=== PATIENT | female | born 1950 | race Caucasian/White ===

== ENCOUNTER 2016-09-10 10:26 | Emergency (ER) | payer BC, OTHER ==
[~2016-09-10] VITALS: Ht 162.6 cm; Wt 123.8 kg
--- NOTE | ~2016-09-10 | EKG ---
[place] [address] [facility] [place] [address] ELECTROCARDIOGRAM REPORT Name: BARBIE MALAGON DIANA Room #: [facility]P [id number] Admission: 09/10/16 Attend Phys: Discharge: 09/10/16 Date of : 48 Report #: [id number] THIS REPORT FOR: //name// [facility] ED Test Date: 2016-09-10 Test Time: 10:57:41 Pat Name: BARBIE MALAGON Department: Room: Gender: F Traffic Control Supervisor: kayla : 1950 Requested By: Bhanu Gary Order Number: [id number] MD: Jam Frazier Measurements Intervals [place] Rate: 97 P: [place]: QRS: -11 QRSD: 87 T: 179 QT: 347 QTc: 441 Interpretive Statements Atrial fibrillation Low voltage, precordial leads Nonspecific T abnormalities, lateral leads Compared to ECG 05/07/2016 07:03:22 Ventricular premature complex(es) no longer present Electronically Signed On 09-12-2016 14:49:32 CDT by Jam Frazier [email or web address] <ELECTRONICALLY SIGNED> By: Jam Frazier MD, [facility] 09/12/16 1449 [id number] [id number] Jam Frazier MD, [facility] /EPI
[~2016-09-10 10:26] MED LIST: AMARYL1 MG OR; ASPIR 8181 MG PO; BLOOD PRESSURE MED OR; CIPROFLOXACIN500 M1 PO; ELIQUIS5 MG PO; FISHOIL OR; FLAGYL500 MG PO; GLUCOPHAGE1000 MG PO; LANTUS SOL100 UNIT/1 SUBQ; LIPITOR40 MG PO; LOVASTAT10 PO; NORCO 5-325 TA1 EACH PO; PLAVIX 75 MG TA75 M1 PO; PROTONIX40 M4 PO; THERA-M CAPLET1 EACH OR; TOPROL XL25 MG PO; VITAMIN C + RO500 MG OR; VITAMIN D1000 UNI1 OR
[2016-09-10 11:04] LABS: ABSOLUTE NEUTROPHILS 6.2 thou/uL (1.4-8.2); BASOPHILS 0.6 % (0.0-2.0); EOSINOPHILS 2.9 % (0.0-3.0); HEMATOCRIT 32.8 % (37.0-47.0); HEMOGLOBIN 10.6 gm/dL (12.0-15.0); LYMPHOCYTES 16.3 % (24.0-44.0); MCH 27.6 pg (26.0-34.0); MCHC 32.5 g/dL (28.0-37.0); MCV 84.9 fL (80.0-100.0); MONOCYTES 5.3 % (1.0-8.0); PLATELET COUNT 211 thou/uL (150-400); POLYS 74.9 % (36.0-66.0); RBC 3.86 mil/uL (4.20-5.00); RDW 18.2 % (10.5-14.5); WBC 8.3 thou/uL (4.0-11.0)
[2016-09-10 11:11] LABS: ANION GAP 9 mmol/L (7-16); BUN 27 mg/dL (7-18); CALCIUM 8.7 mg/dL (8.5-10.1); CHLORIDE 106 mmol/L (98-107); CO2 27 mmol/L (21-32); CREATININE 1.2 mg/dL (0.6-1.0); GLUCOSE 308 mg/dL (74-106); POTASSIUM 4.7 mmol/L (3.5-5.1); SODIUM 142 mmol/L (136-145)
[2016-09-10 11:22] LABS: MANUAL DIFF NO
[2016-09-10 11:23] LABS: NT-PRO BRAIN NAT PEPTIDE 1335 pg/mL (<300); TROPONIN-I < 0.04 ng/mL (<0.04-0.07)
[2016-09-10] MEDS ORDERED: DILT-XR240 M1 PO (12:44)
[2016-09-10] MEDS ORDERED: LASIX 20 MG TAB20 MG PO (12:44)
== END 2016-09-10 13:18 | disposition home or self-care (01) ==
LOC: ER 10:26
PROVIDERS: Emergency Medicine
DX: R06.09 Other forms of dyspnea (principal); E11.9 Type 2 diabetes mellitus without complications; E78.00 Pure hypercholesterolemia, unspecified; I10 Essential (primary) hypertension; I48.91 Unspecified atrial fibrillation

== ENCOUNTER → 2017-03-04 | Outpatient (CLI) | payer BC ==
[~2017-03-04] MED LIST changes: +DILT-XR240 M1 PO; +LASIX 20 MG TAB20 MG PO
[2017-03-04 14:23] LABS: ABSOLUTE NEUTROPHILS 6.2 thou/uL (1.4-8.2); BASOPHILS 0.9 % (0.0-2.0); EOSINOPHILS 3.9 % (0.0-3.0); HEMATOCRIT 36.9 % (37.0-47.0); HEMOGLOBIN 12.1 gm/dL (12.0-15.0); LYMPHOCYTES 17.8 % (24.0-44.0); MCH 28.5 pg (26.0-34.0); MCHC 32.7 g/dL (28.0-37.0); MCV 87.1 fL (80.0-100.0); MONOCYTES 3.8 % (1.0-8.0); PLATELET COUNT 262 thou/uL (150-400); POLYS 73.6 % (36.0-66.0); RBC 4.24 mil/uL (4.20-5.00); RDW 17.7 % (10.5-14.5); WBC 8.5 thou/uL (4.0-11.0)
[2017-03-04 14:28] LABS: MANUAL DIFF NO
[2017-03-04 14:38] LABS: ALBUMIN 3.4 g/dL (3.4-5.0); CALCIUM 9.7 mg/dL (8.5-10.1); CREATININE 1.3 mg/dL (0.6-1.0); POTASSIUM 4.5 mmol/L (3.5-5.1); TOTAL BILIRUBIN 0.3 mg/dL (<0.1-1.0); TOTAL PROTEIN 8.2 g/dL (6.4-8.2)
== END ==
LOC: MRI 13:42 → LABMALL 13:42
PROVIDERS: Internal Medicine Cardiovascular Disease
DX: I25.10 Atherosclerotic heart disease of native coronary artery without angina pectoris (principal); I48.91 Unspecified atrial fibrillation; I67.7 Cerebral arteritis, not elsewhere classified; R40.20 Unspecified coma

== ENCOUNTER → 2017-05-30 | Outpatient (CLI) | payer BC | LOC: HYPER 07:15 | DX: T81.89XD Other complications of procedures, not elsewhere classified, subsequent encounter (principal); E11.622 Type 2 diabetes mellitus with other skin ulcer; L97.211 Non-pressure chronic ulcer of right calf limited to breakdown of skin; I87.2 Venous insufficiency (chronic) (peripheral); I10 Essential (primary) hypertension; I25.10 Atherosclerotic heart disease of native coronary artery without angina pectoris; I48.91 Unspecified atrial fibrillation; I65.23 Occlusion and stenosis of bilateral carotid arteries; E78.5 Hyperlipidemia, unspecified; Z86.718 Personal history of other venous thrombosis and embolism; Y83.8 Other surgical procedures as the cause of abnormal reaction of the patient, or of later complication, without mention of misadventure at the time of the procedure ==

== ENCOUNTER → 2018-02-21 | Outpatient (CLI) | payer BC | LOC: HYPER 07:10 | DX: E11.622 Type 2 diabetes mellitus with other skin ulcer (principal); L97.821 Non-pressure chronic ulcer of other part of left lower leg limited to breakdown of skin; S80.821A Blister (nonthermal), right lower leg, initial encounter; I87.2 Venous insufficiency (chronic) (peripheral); I65.23 Occlusion and stenosis of bilateral carotid arteries; I25.10 Atherosclerotic heart disease of native coronary artery without angina pectoris; I48.91 Unspecified atrial fibrillation; I10 Essential (primary) hypertension; R60.0 Localized edema; E66.9 Obesity, unspecified; E78.5 Hyperlipidemia, unspecified; Z86.73 Personal history of transient ischemic attack (TIA), and cerebral infarction without residual deficits; Z86.718 Personal history of other venous thrombosis and embolism; Z68.42 Body mass index [BMI] 45.0-49.9, adult; X58.XXXA Exposure to other specified factors, initial encounter; Y93.89 Activity, other specified; Y92.89 Other specified places as the place of occurrence of the external cause; Y99.8 Other external cause status ==

== ENCOUNTER → 2018-03-02 | Outpatient (CLI) | payer BC | LOC: HYPER 07:03 | DX: E11.622 Type 2 diabetes mellitus with other skin ulcer (principal); L97.821 Non-pressure chronic ulcer of other part of left lower leg limited to breakdown of skin; S80.821D Blister (nonthermal), right lower leg, subsequent encounter; I87.2 Venous insufficiency (chronic) (peripheral); I65.23 Occlusion and stenosis of bilateral carotid arteries; I25.10 Atherosclerotic heart disease of native coronary artery without angina pectoris; I48.91 Unspecified atrial fibrillation; I10 Essential (primary) hypertension; E66.9 Obesity, unspecified; E78.5 Hyperlipidemia, unspecified; Z86.718 Personal history of other venous thrombosis and embolism; Z68.42 Body mass index [BMI] 45.0-49.9, adult; X58.XXXD Exposure to other specified factors, subsequent encounter ==

== ENCOUNTER → 2018-03-16 | Outpatient (CLI) | payer BC | LOC: HYPER 07:02 | DX: E11.622 Type 2 diabetes mellitus with other skin ulcer (principal); L97.821 Non-pressure chronic ulcer of other part of left lower leg limited to breakdown of skin; I87.2 Venous insufficiency (chronic) (peripheral); E66.9 Obesity, unspecified; E78.5 Hyperlipidemia, unspecified; I65.23 Occlusion and stenosis of bilateral carotid arteries; I25.10 Atherosclerotic heart disease of native coronary artery without angina pectoris; I48.91 Unspecified atrial fibrillation; I10 Essential (primary) hypertension; Z86.718 Personal history of other venous thrombosis and embolism; Z68.42 Body mass index [BMI] 45.0-49.9, adult ==

== ENCOUNTER → 2018-06-12 | Outpatient (CLI) | payer BC | LOC: HYPER 06:55 | DX: E11.622 Type 2 diabetes mellitus with other skin ulcer (principal); L97.821 Non-pressure chronic ulcer of other part of left lower leg limited to breakdown of skin; I87.2 Venous insufficiency (chronic) (peripheral); I65.23 Occlusion and stenosis of bilateral carotid arteries; I25.10 Atherosclerotic heart disease of native coronary artery without angina pectoris; I48.91 Unspecified atrial fibrillation; I10 Essential (primary) hypertension; E66.9 Obesity, unspecified; E78.5 Hyperlipidemia, unspecified; Z86.718 Personal history of other venous thrombosis and embolism; Z68.42 Body mass index [BMI] 45.0-49.9, adult ==

== ENCOUNTER → 2018-06-19 | Outpatient (CLI) | payer BC | LOC: HYPER 06:38 | DX: E11.622 Type 2 diabetes mellitus with other skin ulcer (principal); L97.821 Non-pressure chronic ulcer of other part of left lower leg limited to breakdown of skin; E66.9 Obesity, unspecified; E78.5 Hyperlipidemia, unspecified; I87.2 Venous insufficiency (chronic) (peripheral); I65.23 Occlusion and stenosis of bilateral carotid arteries; I25.10 Atherosclerotic heart disease of native coronary artery without angina pectoris; I48.91 Unspecified atrial fibrillation; I10 Essential (primary) hypertension; Z86.718 Personal history of other venous thrombosis and embolism; Z68.42 Body mass index [BMI] 45.0-49.9, adult ==

== ENCOUNTER 2018-07-08 10:27 | Emergency (ER) | payer BC ==
[~2018-07-08] VITALS: Ht 162.6 cm; Wt 117.9 kg
[2018-07-08] MEDS ORDERED: TORSEMIDE20 MG PO (10:44)
[2018-07-08] MEDS ORDERED: POTASSIUM20 PO (10:45)
[2018-07-08] MEDS ORDERED: BENICAR40 MG PO (10:47)
[2018-07-08] MEDS ORDERED: UNICOMPLEX M TA1 TA1 PO (10:49)
[2018-07-08] MEDS ORDERED: NORCO 5-325 TA1 EACH PO (12:20)
[2018-07-08 12:55] VITALS: BP 144/63
== END 2018-07-08 12:57 | disposition home or self-care (01) ==
LOC: ER 10:27
DX: M25.462 Effusion, left knee (principal); E11.9 Type 2 diabetes mellitus without complications; E78.00 Pure hypercholesterolemia, unspecified; I10 Essential (primary) hypertension; I48.91 Unspecified atrial fibrillation; W19.XXXA Unspecified fall, initial encounter; Y93.89 Activity, other specified; Y92.89 Other specified places as the place of occurrence of the external cause; Y99.8 Other external cause status

== ENCOUNTER → 2018-07-10 | Outpatient (CLI) | payer BC ==
[~2018-07-10] MED LIST changes: +BENICAR40 MG PO; +POTASSIUM20 PO; +TORSEMIDE20 MG PO; +UNICOMPLEX M TA1 TA1 PO
== END ==
LOC: HYPER 07:29
DX: E11.622 Type 2 diabetes mellitus with other skin ulcer (principal); L97.822 Non-pressure chronic ulcer of other part of left lower leg with fat layer exposed; E66.9 Obesity, unspecified; E78.5 Hyperlipidemia, unspecified; I87.2 Venous insufficiency (chronic) (peripheral); I65.23 Occlusion and stenosis of bilateral carotid arteries; I25.10 Atherosclerotic heart disease of native coronary artery without angina pectoris; I48.91 Unspecified atrial fibrillation; I10 Essential (primary) hypertension; Z68.42 Body mass index [BMI] 45.0-49.9, adult; Z86.718 Personal history of other venous thrombosis and embolism

== ENCOUNTER 2018-07-18 13:35 | Emergency (ER) | payer BC ==
[~2018-07-18] VITALS: Ht 162.6 cm; Wt 116.1 kg
[2018-07-18 16:12] VITALS: BP 123/55
== END 2018-07-18 16:12 | disposition home or self-care (01) ==
LOC: ER 13:35
DX: M25.562 Pain in left knee (principal); M25.572 Pain in left ankle and joints of left foot; M79.661 Pain in right lower leg; E11.9 Type 2 diabetes mellitus without complications; E78.00 Pure hypercholesterolemia, unspecified; I10 Essential (primary) hypertension; I48.91 Unspecified atrial fibrillation; Z79.4 Long term (current) use of insulin; W18.39XA Other fall on same level, initial encounter; Y93.89 Activity, other specified; Y92.89 Other specified places as the place of occurrence of the external cause; Y99.0 Civilian activity done for income or pay

== ENCOUNTER → 2018-07-31 | Outpatient (CLI) | payer BC | LOC: HYPER 06:50 | DX: E11.622 Type 2 diabetes mellitus with other skin ulcer (principal); L97.822 Non-pressure chronic ulcer of other part of left lower leg with fat layer exposed; E66.9 Obesity, unspecified; E78.5 Hyperlipidemia, unspecified; I87.2 Venous insufficiency (chronic) (peripheral); I65.23 Occlusion and stenosis of bilateral carotid arteries; I25.10 Atherosclerotic heart disease of native coronary artery without angina pectoris; I48.91 Unspecified atrial fibrillation; I10 Essential (primary) hypertension; Z86.718 Personal history of other venous thrombosis and embolism; Z68.42 Body mass index [BMI] 45.0-49.9, adult ==

== ENCOUNTER → 2018-08-22 | Outpatient (CLI) | payer BC | LOC: HYPER 08:35 | DX: E11.622 Type 2 diabetes mellitus with other skin ulcer (principal); L97.822 Non-pressure chronic ulcer of other part of left lower leg with fat layer exposed; I87.2 Venous insufficiency (chronic) (peripheral); I10 Essential (primary) hypertension; I65.23 Occlusion and stenosis of bilateral carotid arteries; I25.10 Atherosclerotic heart disease of native coronary artery without angina pectoris; I48.91 Unspecified atrial fibrillation; E66.9 Obesity, unspecified; E78.5 Hyperlipidemia, unspecified; Z86.718 Personal history of other venous thrombosis and embolism; Z68.42 Body mass index [BMI] 45.0-49.9, adult ==

== ENCOUNTER 2018-11-03 11:03 | Inpatient (IN) | payer BC, OTHER ==
[~2018-11-03] VITALS: Ht 162.6 cm; Wt 118.0 kg
--- NOTE | ~2018-11-03 | O ---
[facility] [place] [place] [address] OPERATIVE REPORT Name: BARBIE MALAGON Room #: 427-P ADM IN M.R.#: [id number] Admission: 11/03/18 ������������������ Attend Phys: Mark Guardado Discharge: ������������������ Date of : 48 Report #: [id number] THIS REPORT FOR: //name// CC: Mark Coates DATE OF SERVICE: 11/04/2018 PREOPERATIVE DIAGNOSIS: Incarcerated ventral hernia. POSTOPERATIVE DIAGNOSIS: Incarcerated ventral hernia. OPERATIVE PROCEDURE DONE: Laparoscopic repair of incarcerated ventral hernia with mesh. SURGEON: Dr. Jose Womack. INDICATIONS: The patient is a 68-year-old female who is obese, who presented with features of a ventral hernia and features of obstruction. The hernia appeared to be incarcerated and the obstruction was within the hernia. The patient was advised laparoscopic repair of same. The patient was tender over the abdomen in the region of the ventral hernia. The patient was advised for the emergency procedure emergency repair. DESCRIPTION OF PROCEDURE: After explaining the patient in detail and informed consent was obtained, the patient was identified in the preoperative holding area, the patient was transferred to the operating room and was placed in supine position. Sequential compression devices were placed for DVT prophylaxis. The preoperative antibiotics were given. After induction of anesthesia, the abdomen was prepped and draped in a sterile fashion through a left upper quadrant 1 cm incision and using the Optiview technique, the peritoneal cavity was entered and a pneumoperitoneum was created. Thereafter, under direct vision, another 8 mm trocar was placed in the left flank and another 5 mm trocar was placed in the left lower quadrant region. On initial inspection, the patient was noted to have an incarcerated ventral hernia at the previous repair site near the umbilical region. This was gently reduced using blunt dissection. The bowel was also appeared to be congested, but it was still very viable. Once this was completed, I did not do any dissection of the sac as the umbilicus was very thinned out and I suspected possible non-viability of the umbilicus. She fired it. Continued dissection of the sac from this region. Therefore, I used 2 interrupted Ethibond suture to approximate the hernial defect slightly without much tension. After this, I chose a 15 x 10 cm Ventralight mesh with this is inserted into the abdominal cavity. This was the Echo mesh. Therefore, I inflated the balloon. The mesh was then anchored down to the anterior abdominal wall. The mesh was then tacked circumferentially using secure strap at 1 cm intervals. Once this was done, I then placed four interrupted 2-0 [place] [address] [address] OPERATIVE REPORT Name: BARBIE MALAGON DIANA Room #: 427-P [facility] IN M.R.#: [id number] Admission: 11/03/18 ������������������ Attend Phys: Mark Guardado Discharge: ������������������ Date of : 48 Report #: [id number] sutures in the four corners to anchor the mesh well. Once this is completed, absolute hemostasis was ensured. The abdomen was then desufflated. Incisions were closed with 4-0 Monocryl. Dermabond was applied. The patient was stable at the end of the procedure, the patient was awoken from anesthesia and was transferred to the recovery room in stable condition. Estimated blood loss was 5 mL. CONDITION: The patient is stable. FLUIDS GIVEN: Per anesthesiologist. SPECIMEN SENT: None. COMPLICATIONS: None. ANESTHESIA: General anesthesia. ��������������������������������������������� ���������������������������������������� By: ��������������������������������������������� 1946 13 Jose Womack MD /nt
[~2018-11-03 11:03] MED LIST changes: -AMARYL1 MG OR; +AMARYL4 MG PO; -ASPIR 8181 MG PO; +ASPIRIN81 M2 PO; -GLUCOPHAGE1000 MG PO; +GLUCOPHAGE500 MG PO
[2018-11-03 11:04] VITALS: BP 195/80
[2018-11-03 11:29] LABS: HEMATOCRIT 38.9 % (37.0-47.0); HEMOGLOBIN 12.6 gm/dL (12.0-15.0); MCH 28.2 pg (26.0-34.0); MCHC 32.4 g/dL (28.0-37.0); MCV 87.1 fL (80.0-100.0); RBC 4.46 mil/uL (4.20-5.00); RDW 16.3 % (10.5-14.5); WBC 12.7 thou/uL (4.0-11.0)
[2018-11-03 11:37] LABS: ANION GAP 11 mmol/L (7-16); BUN 39 mg/dL (7-18); CALCIUM 10.8 mg/dL (8.5-10.1); CHLORIDE 102 mmol/L (98-107); CO2 26 mmol/L (21-32); CREATININE 1.3 mg/dL (0.6-1.0); GLUCOSE 172 mg/dL (74-106); SODIUM 139 mmol/L (136-145)
[2018-11-03 11:47] LABS: ALBUMIN 3.9 g/dL (3.4-5.0); LIPASE 101 U/L (73-393); SGOT 23 U/L (15-37); SGPT 31 U/L (30-65); TOTAL BILIRUBIN 0.5 mg/dL (<0.1-1.0); TOTAL PROTEIN 8.7 g/dL (6.4-8.2); TROPONIN-I <0.06 ng/mL (<0.06)
[2018-11-03 15:00] VITALS: BP 194/78
--- NOTE | 2018-11-03 15:02 | EKG ---
[address] [place] [address] ELECTROCARDIOGRAM REPORT Name: BARBIE MALAGON DIANA Room #: 170-10 ADM IN M.R.#: [id number] ������������������ Admission: 11/03/18 ������������������ Attend Phys: Mark Guardado Discharge: ������������������ Date of : 48 Report #: [id number] ����������������������������������������������������������������� [id number] THIS REPORT FOR: //name// [facility] ED Test Date: 2018-11-03 Test Time: 11:38:52 Pat Name: BARBIE MALAGON Department: Room: 170 Gender: F Student Assistant: ONEIL : 1950 Requested By: Shruti Valenzuela Order Number: [id number] MD: Luis Lewis Measurements Intervals [place] Rate: 108 P: [place]: QRS: -15 QRSD: 91 T: 116 QT: 335 QTc: 449 Interpretive Statements Atrial fibrillation Ventricular premature complex Borderline left axis deviation Low voltage, precordial leads Nonspecific repol abnormality, lateral leads Compared to ECG 09/10/2016 10:57:41 Ventricular premature complex(es) now present T-wave abnormality no longer present Electronically Signed On 11-03-2018 15:01:57 CDT by Luis Lewis [email or web address] ��������������������������������������������� <ELECTRONICALLY SIGNED> ���������������������������������������� By: Luis Lewis MD ��������������������������������������������� 11/03/18 1501 1138 1138 Luis Lewis MD /EPI
[2018-11-03] MEDS ORDERED: DILTIAZEM 24HR180 M2 PO (15:07)
[2018-11-03 15:13] VITALS: BP 194/78
[2018-11-03 16:29] VITALS: BP 152/102
--- NOTE | 2018-11-03 18:03 | NUR ---
PT ARRIVED TO ROOM 427 FROM ED IN STABLE CONDITION AT 16:15. ELEVATED BP NOTED, BP MEDS TO GIVE. IV INFILTRATED UPON ARRIVAL, IV TEAM NOTIFIED. NGT IN PLACE, LIS. RODRÍGUEZ BROWN OUTPUT NOTED. ROOM AIR. SACRAL REDNESS NOTED. NPO. HIGH FALL RISK NOTED, BED ALARM ON. WILL CONTINUE TO MONITOR.
[2018-11-03 22:07] VITALS: BP 146/71
[2018-11-04] VITALS (7 sets, daily range): BP systolic 83–148; BP diastolic 58–87
--- NOTE | 2018-11-04 05:18 | NUR ---
PATIENT ALERT AND ORIENTED X4. NG TO LOW INTERMITTIN SUCTION. VOMITED SMALL AMOUNT BROWN LIQUID. ACCU CHECK WAS 205, RECIEVED 4 UNITS LISPRO INSULIN. REMAIN NPO FOR SURGERY IN THE AFTERNOON. HERNIA IN ABD THAT WILL NOT REDUCE. C/O PAIN X1, MED GIVEN. SLEPT OFF AND ON DURING NIGHT.
--- NOTE | 2018-11-04 11:16 | NUR ---
ASSESMENT COMPLETED. VSS. A/O. PAIN MANAGED BY MEDS ORDERED. NO SOA. VOMITTED X1 THIS AM. NG TO BRITTNEE. RETAPED. PT TAKE TO SURGERY AT THIS TIME.
--- NOTE | 2018-11-04 15:58 | NUR ---
ORDER CLARIFICATION FOR PT METOPROLOL ORDER. PAGED DR. GARCIA, WAITING FOR CALL BACK.
--- NOTE | 2018-11-04 16:27 | NUR ---
PT BACK FROM SURGERY STATING FEELING BETTER. LAP SITES X9 CDI. PT TO START ON CLEARS. NO CONCERNS VOICED AT THIS TIME. WILL CONT. TO MONITOR.
--- NOTE | 2018-11-04 18:13 | NUR ---
PT REPORTS UNABLE TO VOID SINCE THIS AM. WENT TO SURGERY AT 11AM. RECEIVED PT CARE APPROX [phone]. ATTEMPTED TO USE BEDPAN- NO RESULTS. BLADDER SCANNED 75 ML. NO DISCOMFORT AT THIS TIME.
[2018-11-05 04:00] VITALS: BP 114/55
[2018-11-05 06:31] LABS: ALBUMIN 2.6 g/dL (3.4-5.0); CREATININE 1.1 mg/dL (0.6-1.0); MAGNESIUM 1.8 mg/dL (1.8-2.4); PHOSPHORUS 3.7 mg/dL (2.5-4.9); POTASSIUM 4.4 mmol/L (3.5-5.1)
[2018-11-05 06:32] LABS: CALCIUM 8.2 mg/dL (8.5-10.1)
--- NOTE | 2018-11-05 07:29 | NUR ---
PATIENT ALERT AND ORIENTED X4. REFUSING TO GET OOB TO THE BSC. INCONTINENT OF B/B X1 DURING THE NIGHT. MEDICATED FOR PAIN. PATIENT SLEPT FOR APPROX SIX HOURS DURING THE NIGHT. IVF INFUSING W/O COMPLICATION. BS MONITORED PER ORDER. RESTING QUIETLY. WILL MONITOR.
--- NOTE | 2018-11-05 18:01 | NUR ---
ASSUMED CARE OF PT AT 0700. ASSESSMENT CHARTED. A&O,X4. C/O BACK AND ABD PAIN, PAIN MEDS GIVEN ORDERED. FLUIDS D/C. LAP SITES WITH DERMABOND INTACT. PT UP TO BSC TO VOID. WEANED TO ROOM AIR, SATS ABOVE 92%. ADVANCED DIET PER DR. GARDNER, PT TOLERATING. PROGRESSING TOWARDS GOALS. WILL CONTINUE TO MONITOR UNTIL EOS.
[2018-11-05 19:46] VITALS: BP 129/61
[2018-11-06 04:57] VITALS: BP 122/72
--- NOTE | 2018-11-06 06:42 | NUR ---
NOC: ASSUMED CARE OF PT @1900 ALERT AND ORIENTEDX4 DENIES PAIN. DRESSING AROUND INCISION INTACT. SIGNIFICANT OTHER AT BEDSIDE FOR THE NIGHT. URINAL BY BEDSIDE. FALL PREC IN PLACE AND BED IN LOW POSITION WILL CONINUE TO MONITOR
[2018-11-06 07:41] VITALS: BP 112/60
--- NOTE | 2018-11-06 09:24 | NUR ---
ASSESMENT COMPLETED. VSS. A/O. C/O PAIN- MEDS GIVEN ORDERED- SEE MAR. NO NOTED SOA. NO NV. PT EATING BREAKFAST AT THIS TIME. TOLERATING WELL. LAP SITES CDI. WILL CONT. TO MONITOR.
[2018-11-06] MEDS ORDERED: TRAMADOL 50 MG50 MG PO (09:55)
[2018-11-06] MEDS ORDERED: MIRALAX17 G1 PO (09:55)
--- NOTE | 2018-11-06 10:04 | NUR ---
INITIAL ASSESSMENT: Pt evaluated for d/c planning needs. Reviewed chart and spoke with nurse and pt. Pt is alert and oriented. Pt lives in house with and 9 year old. Pt was independent with ADL's and used cane for ambulation. Pt works full-time at [employer] in the office. Pt has not had home health in the past. Pt plans on returning home on d/c from hospital. No d/c needs indicated.
[2018-11-06 11:18] VITALS: BP 112/60
--- NOTE | 2018-11-06 12:27 | NUR ---
DC INSTRUCTIONS GIVEN TO PT. PT VERBALIZED UNDERSTANDING. IV DCD. SCRIPTS GIVEN. PT TO DC HOME WITH SELF CARE IN STABLE CONDITION. WAITING FOR TRANSPORT.
== END 2018-11-06 12:30 | disposition home or self-care (01) | DRG 355 ==
LOC: ER 11:03 → EROBS 14:40 → 4E 14:40 → ENTRNSPT 11-06 12:27 → 4E 11-06 12:30 → EDTRNSPTSTS 11-06 12:34
PROVIDERS: Student in an Organized Health Care Education/Training Program; Surgery; ADMIT Hospitalist
PROC: 0WUF4JZ Supplement Abdominal Wall with Synthetic Substitute, Percutaneous Endoscopic Approach (ICD-10-PCS; principal; 2018-11-04)
DX: K43.6 Other and unspecified ventral hernia with obstruction, without gangrene (principal); I10 Essential (primary) hypertension; E78.5 Hyperlipidemia, unspecified; E11.9 Type 2 diabetes mellitus without complications; K42.0 Umbilical hernia with obstruction, without gangrene; F17.210 Nicotine dependence, cigarettes, uncomplicated; I48.91 Unspecified atrial fibrillation; E78.00 Pure hypercholesterolemia, unspecified; Z79.01 Long term (current) use of anticoagulants; Z95.818 Presence of other cardiac implants and grafts; Z79.82 Long term (current) use of aspirin; Z79.84 Long term (current) use of oral hypoglycemic drugs; Z90.49 Acquired absence of other specified parts of digestive tract; Z79.899 Other long term (current) drug therapy
CPT/HCPCS: 10084; 50010; 50101; 50249; 50386; 50555; 50558; 50979; 50984; 52265; 52266; 53310; 54022; 54118; 56462; 56525; 56526; 56530; 57092; 62110; 62900; 70005

== ENCOUNTER 2018-11-06 17:25 | Inpatient (IN) | payer BC, OTHER ==
[~2018-11-06] VITALS: Ht 162.6 cm; Wt 128.9 kg
[~2018-11-06 17:25] MED LIST changes: +DILTIAZEM 24HR180 M2 PO; +MIRALAX17 G1 PO; +TRAMADOL 50 MG50 MG PO
[2018-11-06 18:42] LABS: ABSOLUTE NEUTROPHILS 10.9 thou/uL (1.4-8.2); BASOPHILS 0.3 % (0.0-2.0); EOSINOPHILS 1.1 % (0.0-3.0); HEMOGLOBIN 10.8 gm/dL (12.0-15.0); LYMPHOCYTES 9.2 % (24.0-44.0); MCHC 31.7 g/dL (28.0-37.0); MCV 88.3 fL (80.0-100.0); MONOCYTES 5.7 % (1.0-8.0); PLATELET COUNT 239 thou/uL (150-400); POLYS 83.7 % (36.0-66.0); RBC 3.85 mil/uL (4.20-5.00); RDW 16.9 % (10.5-14.5); WBC 13.1 thou/uL (4.0-11.0)
[2018-11-06 18:52] LABS: CALCIUM 9.2 mg/dL (8.5-10.1); CREATININE 1.3 mg/dL (0.6-1.0); POTASSIUM 3.8 mmol/L (3.5-5.1)
[2018-11-06 19:00] LABS: TROPONIN-I 0.07 ng/mL (<0.06)
--- NOTE | 2018-11-07 07:37 | EKG ---
[place] [address] [facility] [place] [address] ELECTROCARDIOGRAM REPORT Name: BARBIE MALAGON DIANA Room #: 170-17 ADM IN M.R.#: [id number] ������������������ Admission: 11/06/18 ������������������ Attend Phys: Mark Guardado Discharge: ������������������ Date of : 48 Report #: [id number] ����������������������������������������������������������������� [id number] THIS REPORT FOR: //name// [facility] ED Test Date: 2018-11-06 Test Time: 17:41:12 Pat Name: BARBIE MALAGON Department: Room: 170 Gender: F Assistant Child Care Teacher: HEMANT : 1950 Requested By: Bhanu Gary Order Number: [id number] MD: Jam Frazier Measurements Intervals [place] Rate: 110 P: [place]: QRS: -14 QRSD: 86 T: 147 QT: 276 QTc: 374 Interpretive Statements Atrial fibrillation Frequent premature ventricular aberrantly conducted supraventricular complexes Nonspecific ST and T wave abnormality Compared to ECG 11/03/2018 11:38:52 No significant change was found Electronically Signed On 11-07-2018 7:37:37 CDT by Jam Frazier [email or web address] ��������������������������������������������� <ELECTRONICALLY SIGNED> ���������������������������������������� By: Jam Frazier MD, [facility] ��������������������������������������������� 11/07/18 0737 [id number] Jam Frazier MD, [facility] /EPI
[2018-11-07 14:31] VITALS: BP 106/61
[2018-11-07 18:42] VITALS: BP 106/58
[2018-11-07 20:41] VITALS: BP 110/57
[2018-11-08] VITALS: BP 121/61
[2018-11-08 03:54] VITALS: BP 141/69
--- NOTE | 2018-11-08 06:35 | NUR ---
ASSUMED PT CARE AT 1900. VSS. PT A&0X4. PT WAS A NEW ER ADMIT LAST NIGHT. PT REPORTS BEING NON WEIGHT BEARING ON HER LEGS & WEAKNESS. SHE IS ALSO HIGH FALL RISK SHE RECENTY FELL AT HOME. PT HAS A LEFT KNEE PAIN, GETS HYDROCODONE FOR IT. SHE ALSO RECENTLY HAD ABD HERNIA REPAIR SURGERY SO PT HAD NOT HAD A BM SINCE 11/02/18; NEEDS MIRALAX. SKIN IS INTACT, ABD DRESSING CDI. 5 LAP SITES NOTED ON ABD WITH SURGUCAL GLUE. PT IS ALSO INCONTINENT OF BLADDER, FREQUENT BEDCHECKS NEEDED. PT IS AFIB ON THE MONITOR WAS 110s WHEN SHE INITIALLY GOT TO THE FLOOR LAST NIGHT BUT DROPPED TO THE 90s THE NIGHT WENT ON. OTHERWISE PT IS STABLE, WILL CONTINUE TO MONITOR PER POC.
[2018-11-08 07:21] VITALS: BP 141/74
--- NOTE | 2018-11-08 12:38 | NUR ---
Case opened to follow for dc planning. Pt was dc'd to home yesterday after a hernia surgery;however she hurt her lt knee getting into the house and returned to the ER. Pt is a&ox4 and lives indep with her spouse. 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 She has four steps to enter her home and has been able to manage those with a cane. She and her spouse are raising their 9yr old grandson with Autism. Her spouse is retired. She is awaiting an ortho consult and PT eval but is aware that she will need SNF at ia. She is interested in [facility] due to location and they are in network with her ins plan. DC digital media planner to initiate referral. Support provided.
[2018-11-08 12:46] VITALS: BP 141/67
--- NOTE | 2018-11-08 13:47 | NUR ---
FAXED REFERRAL TO [facility] SPOKE WITH TIFFANIE IN ADM SHE RECEIVED REFERRAL. PT HAS NOT BEEN SEEN BY PT/OT YET DCP WILL FAX NOTES ONCE AVAILABLE.DCP TO FOLLOW.
[2018-11-08 16:00] VITALS: BP 148/61
--- NOTE | 2018-11-08 17:55 | NUR ---
ALERT AND ORIENTED AND VITALS STABLE. HAS BEEN MEDICATED FOR PAIN WITH PRN MEDS ONCE TODAY. MEDICATED FOR NAUSEA AND PRN LAXATIVE ADMINISTERED. INCONTINENT OF BLADDER DESPITE MULTIPLE ATTEMPTS TO PUT ON BEDPAN. DRESSING ON ABD INTACT. LLE IMMOBILIZER APPLIED. WILL CONTINUE TO MONITOR CLOSELY, BEING EVALUATED FOR SNF.
[2018-11-08 19:35] VITALS: BP 168/59
[2018-11-09 04:21] VITALS: BP 140/63
--- NOTE | 2018-11-09 05:19 | NUR ---
ASSESSMENT DOCUMENTED.PT BEEN RESTING IN NO ACUTE DISTRESS.A/OX4.VSS.PT CONTINUE DTO C/O PAIN TO LEFT LEG THAT IS CONTROLLED WITH PAIN MEDS.LAP SITES INCISIONS INTACT.BRACE TO LEFT KNEE IN PLACE.NO C/O NAUSEA.POC IS TO CONT WITH TX ORDERED WITH POSSIBLE DISCHARGE TO REHAB.
[2018-11-09 07:45] VITALS: BP 141/75
[2018-11-09 08:53] VITALS: BP 141/75
--- NOTE | 2018-11-09 14:26 | NUR ---
Pt dcing to SNF today at [facility]. They have rec'd insurance authorization. Pt updated at bedside and agreeable. She will let her spouse and dtr know. Pt glad she will not have to have surgery. She is hoping to rehab quickly and return home. A family member has been working on a ramp for her home's front entrance as she has four steps. Chart copy in place to send with the pt. Nursing to call report. DC cyber ops planner has faxed orders and will confirm transport time with all parties.
--- NOTE | 2018-11-09 14:40 | NUR ---
PT DISCHARGING TODAY TO [facility] FAXED DC ORDERS/SUMMARY TO FACILITY SPOKE WITH TIFFANIE IN ADM SHE RECEIVED ORDERS AND ARRANGED TRANSPORT VIA WC VAN FOR [phone]. PT WILL NOTIFY FAMILY OF DC AND TIME OF TRANSPORT. UNIT NOTIFIED AND CHART COPY PER US. RN TO CALL REPORT TO [phone].
--- NOTE | 2018-11-09 15:30 | NUR ---
PT CARE ASSUMED APPROX 0700. PT ALERT AND ORIENTED X4. DENIES SOA. C/O PAIN TO LEFT KNEE BUT YELLS "OUCH" WHEN ANY BODY PART IS TOUCHED. PT RECEIVED PAIN MEDS THIS AM BUT HAS NOT WANTED ANY SINCE THEN. VSS. BS CONTROLLED WITH SSI. PT UP TO BSC WITH P/T. LEFT KNEE IMMOBILIZER IN PLACE. PT TO DISCHARGE TO SNF FACILITY AT APPROX 1600. PT REPORTS THAT ALL BELONGINGS ARE IN HER POSSESSION. DENIES QUESTIONS OR CONCERNS REGARDING TRANSFER OR POC. PT HAD MULTPILE BOWEL MOVEMENTS AND REPORTS RELIEF. REPORT CALLED TO SLY AT RECEIVING FACILITY. SHE ALSO DENIES QUESTIONS OR CONCERNS REGARDING PT OR POST HOSPITAL CARE. IV OUT, TELE OFF. WILL MONITOR PT UNTIL TRANSPORTATION ARRIVES.
--- NOTE | 2018-11-09 16:29 | NUR ---
PT LEAVING AT THIS TIME WITH WHEELCHAIR VAN. NO ISSUES.
--- NOTE | 2018-11-09 16:33 | HC ---
[facility] [place] [address] [place] [address] CONSULTATION Name: BARBIE MALAGON Room #: 213-P ADM IN M.R.#: [id number] Admission: 11/06/18 ������������������ Attend Phys: Mark Guardado Discharge: ������������������ Date of : [birth year] Report #: [id number] THIS REPORT FOR: //name// CC: Dominick Coates DATE OF SERVICE: 11/08/2018 CHIEF COMPLAINT: Left knee pain. HISTORY OF PRESENT ILLNESS: This obese 68-year-old female was recently admitted for repair of a hernia. She was in the hospital for several days and then discharged home. As she entered her home going up several steps, she felt a painful popping sensation in the left knee and was unable to continue. She returned to the Emergency Department where she was admitted here. X-rays of the left knee reveal moderate degenerative change. An MRI study also reveals moderate degenerative change with some cartilage damage and meniscus damage in both the medial and lateral compartments. There is no evidence of fracture, nor any other significant new structural problems. She has been unable to stand and bear weight due to ongoing knee discomfort. She is currently trying to begin use of a knee immobilizer brace and therapy and plans have been started for possible transfer to an extended care facility. At the time of my evaluation, she is uncomfortable in a general fashion, I believe both related to her abdomen and to the left knee. She is morbidly obese and appears quite deconditioned. The left knee demonstrates a mild knee effusion. She is uncomfortable to palpation or any movement, which she resists. There is moderate crepitus at the patella and the medial joint line consistent with moderate generalized degenerative osteoarthritis. There is no obvious instability, nor marked deformity. The knee seems stable. I have reviewed the films regarding her plain x-rays and the MRI study. I agree with the radiologist's interpretation. She does have evidence of moderate degenerative change with both cartilage and meniscus damage. I do not see evidence of fracture nor any other acute structural injuries. IMPRESSION: Moderately severe chronic degenerative osteoarthritis, left knee with recent left knee sprain causing additional knee pain and swelling. I have had a lengthy discussion with the patient explaining that her primary problem involves chronic severe degenerative osteoarthritis. Her more recent acute injury involves a knee sprain, which has aggravated this preexisting condition. I do not see anything, which would require benefit from any acute surgery. I think a period of rehabilitation would be most appropriate. This will be difficult given her morbid obesity and poorly conditioned state. I [facility] [address] [place] [address] CONSULTATION Name: BARBIE MALAGON DIANA Room #: 213-P [facility] IN M.R.#: [id number] Admission: 11/06/18 ������������������ Attend Phys: Mark Guardado Discharge: ������������������ Date of : 48 Report #: [id number] expect she will need significant assistance for safety, probably using a walker for balance. She may benefit from a knee immobilizer brace simply for protection and support. I think she may bear weight on the left side whenever comfort allows. In the future if she is having ongoing symptoms, conservative measures might include ongoing use of anti-inflammatory medications or possible knee injection. If symptoms are more severe, then one might consider either arthroscopic debridement or eventual total knee replacement. Certainly, she is not a candidate for either of those procedures at this time given her recent surgery and comorbidity issues; therefore, I would agree with conservative management including slowly advancing therapy with assistance as needed, using a walker and knee immobilizer brace for protection. She seems to understand my thoughts and recommendations, although feels these are somewhat inconsistent with what she has been told by other physicians. I have suggested further discussion with them may be appropriate. At this point, I do not have much else to suggest aside from pressing ahead with transfer to an extended care facility. If at some point her symptoms are more severe and if she wishes, then we can certainly consider a cortisone injection in the knee for some temporary symptomatic benefit. Thank you for allowing me to participate in her care. ��������������������������������������������� <ELECTRONICALLY SIGNED> ���������������������������������������� By: Angus Mendes MD ��������������������������������������������� 11/09/18 1633 [id number] [id number] Angus Mendes MD /nt
== END 2018-11-09 16:30 | DRG 563 ==
LOC: ER 17:25 → 2N 18:24 → EROBS 18:24 → 2N 11-07 19:24
PROVIDERS: Emergency Medicine; ADMIT Hospitalist
DX: S83.92XA Sprain of unspecified site of left knee, initial encounter (principal); I48.2 Chronic atrial fibrillation; E11.9 Type 2 diabetes mellitus without complications; E78.00 Pure hypercholesterolemia, unspecified; I48.91 Unspecified atrial fibrillation; M17.12 Unilateral primary osteoarthritis, left knee; K46.9 Unspecified abdominal hernia without obstruction or gangrene; Z79.4 Long term (current) use of insulin; Z79.899 Other long term (current) drug therapy; X58.XXXA Exposure to other specified factors, initial encounter; Y93.89 Activity, other specified; Y92.89 Other specified places as the place of occurrence of the external cause; Y99.8 Other external cause status
CPT/HCPCS: 10081

== ENCOUNTER → 2019-07-25 | Outpatient (CLI) | payer BC | LOC: SJCVCIMAG 08:19 | DX: I08.3 Combined rheumatic disorders of mitral, aortic and tricuspid valves (principal); I11.9 Hypertensive heart disease without heart failure; I48.91 Unspecified atrial fibrillation; I25.10 Atherosclerotic heart disease of native coronary artery without angina pectoris; E78.5 Hyperlipidemia, unspecified; Z79.899 Other long term (current) drug therapy; Z86.73 Personal history of transient ischemic attack (TIA), and cerebral infarction without residual deficits ==

== ENCOUNTER → 2020-11-05 | Outpatient (CLI) | payer BC | LOC: SJCVCIMAG 07:37 | PROVIDERS: ATTEND Internal Medicine Cardiovascular Disease | DX: I08.1 Rheumatic disorders of both mitral and tricuspid valves (principal); I25.10 Atherosclerotic heart disease of native coronary artery without angina pectoris; I48.21 Permanent atrial fibrillation; I10 Essential (primary) hypertension; E78.00 Pure hypercholesterolemia, unspecified; I87.2 Venous insufficiency (chronic) (peripheral); E11.9 Type 2 diabetes mellitus without complications; Z79.899 Other long term (current) drug therapy; Z79.84 Long term (current) use of oral hypoglycemic drugs ==